=== PATIENT | male | born 1995 | race Caucasian/White ===

== ENCOUNTER 2018-04-27 05:56 | Emergency (ER) | payer SELFPAY ==
[2018-04-27 05:59] VITALS: BP 156/92; PULSE 67; RESP 18; TEMP 36.5; O2SAT 97
--- NOTE | 2018-04-27 06:03 | W.ED.GENAD ---
Discharge Plan Discharge Details Chief Complaint: GenMedical Clinical Impression: Gout attack Primary Care Provider: NONE,NONE ED Provider: Darinel Snell Disposition Patient Disposition: HOME Condition: Good Home Meds and New Rx's Prescriptions: New colchicine 0.6 mg capsule 0.6 mg PO ONCE Qty: 1 RF: 0 Discharge Instructions Instructions: Gout (ED) Additional Instructions: Take the next dose at 7:30 am today. Keep foot elevated today. Use Tylenol or Motrin for pain. Will have Care Management work with you to get primary care for follow up. Stand Alone Forms: Work Release Referrals: Care Management [Provider Group] Medical Decision Making MDM Narrative Medical decision making narrative: Patient here with big toe pain in the MTP joint with tenderness and pain with ROM. No erythema or swelling at this point. History of gout and likely recurrence today. No trauma and was fine when he went to bed. No imaging. Treat with colchicine 1.2 mg then 0.6 mg an hour later. Home for the day and use Tylenol/Motrin for pain. Return to ED if worse. Place on care management list for assistance in getting PCP for follow up. HPI - General Adult General Mode of arrival: ambulatory. Date/Time Provider Initiated Documentation: 04/27/18 06:02. Limitations to Documentation: no limitations. Information obtained by: patient. HPI Narrative-FOR DICTATION ONLY HPI Narrative: Patient presents to ED with complaint of left big toe pain. He has history of gout previously. He denies any trauma. He was drinking alcohol this weekend. He woke with pain about 2 in the morning. Pain has got worse and he is having trouble walking. He denies fever. He denies other joint pain. Related Data Previous Rx's Medication Instructions Recorded colchicine 0.6 mg PO ONCE #1 cap 04/27/18 Allergies Allergy/AdvReac Type Severity Reaction Status Date / Time No Known Allergies Allergy Unverified 10/16/17 14:07 General Stated Complaint: GenMedical AUGUSTO: 4 Review of Systems Constitutional Denies chills and Denies fever(s) Musculoskeletal Reports arthralgias, Denies joint swelling and Reports limited range of motion Integumentary/Breasts Denies erythema and Denies rash PFSH Medical History Gout (Acute) Social History Smoking/Tobacco Use Status: Never Exam Const General: cooperative, comfortable and no acute distress Orientation: alert and oriented x3 HENUT Head: normocephalic and atraumatic Skin General skin exam: no erythema Rashes: no rashes Neuro General: alert, oriented x3, moves all extremities, no focal motor deficits and CN's II-XI intact bilaterally Extrem General: normal exam except as noted Left lower extremity: no joint enlargement and foot Details: tenderness Location: of the great toe Location: at the MTP joint and abnormal ROM of toe Details: pain with active ROM Location: of the great toe Course Vital Signs Temperature 97.7 F 04/27/18 05:59 Pulse 67 04/27/18 05:59 Respiratory Rate 18 04/27/18 05:59 Blood Pressure 156/92 H 04/27/18 05:59 Pulse Oximetry 97 04/27/18 05:59 Temperature 97.7 F 04/27/18 05:59 Pulse 67 04/27/18 05:59 Respiratory Rate 18 04/27/18 05:59 Blood Pressure 156/92 H 04/27/18 05:59 Pulse Oximetry 97 04/27/18 05:59
--- NOTE | 2018-04-27 06:14 | ED.GENADUL_ITS ---
Discharge Plan Discharge Details Chief Complaint: GenMedical Clinical Impression: Gout attack Primary Care Provider: NONE,NONE ED Provider: Darinel Snell Disposition Patient Disposition: HOME Condition: Good Home Meds and New Rx's Prescriptions: New colchicine 0.6 mg capsule 0.6 mg PO ONCE Qty: 1 RF: 0 Discharge Instructions Instructions: Gout (ED) Additional Instructions: Take the next dose at 7:30 am today. Keep foot elevated today. Use Tylenol or Motrin for pain. Will have Care Management work with you to get primary care for follow up. Stand Alone Forms: Work Release Referrals: Care Management [Provider Group] Medical Decision Making MDM Narrative Medical decision making narrative: Patient here with big toe pain in the MTP joint with tenderness and pain with ROM. No erythema or swelling at this point. History of gout and likely recurrence today. No trauma and was fine when he went to bed. No imaging. Treat with colchicine 1.2 mg then 0.6 mg an hour later. Home for the day and use Tylenol/Motrin for pain. Return to ED if worse. Place on care management list for assistance in getting PCP for follow up. HPI - General Adult General Mode of arrival: ambulatory . Date/Time Provider Initiated Documentation: 04/27/18 06:02 . Limitations to Documentation: no limitations . Information obtained by: patient . HPI Narrative-FOR DICTATION ONLY HPI Narrative: Patient presents to ED with complaint of left big toe pain. He has history of gout previously. He denies any trauma. He was drinking alcohol this weekend. He woke with pain about 2 in the morning. Pain has got worse and he is having trouble walking. He denies fever. He denies other joint pain. Related Data Previous Rx's Medication Instructions Recorded colchicine 0.6 mg PO ONCE #1 cap 04/27/18 Allergies Allergy/AdvReac Type Severity Reaction Status Date / Time No Known Allergies Allergy Unverified 10/16/17 14:07 General Stated Complaint: GenMedical AUGUSTO: 4 Review of Systems Constitutional Denies chills and Denies fever(s) Musculoskeletal Reports arthralgias, Denies joint swelling and Reports limited range of motion Integumentary/Breasts Denies erythema and Denies rash PFSH Medical History Gout (Acute) Social History Smoking/Tobacco Use Status: Never Exam Const General: cooperative, comfortable and no acute distress Orientation: alert and oriented x3 HENIA Head: normocephalic and atraumatic Skin General skin exam: no erythema Rashes: no rashes Neuro General: alert, oriented x3, moves all extremities, no focal motor deficits and CN's II-XI intact bilaterally Extrem General: normal exam except as noted Left lower extremity: no joint enlargement and foot Details: tenderness Location : of the great toe Location: at the MTP joint and abnormal ROM of toe Details: pain with active ROM Location: of the great toe Course Vital Signs Temperature 97.7 F 04/27/18 05:59 Pulse 67 04/27/18 05:59 Respiratory Rate 18 04/27/18 05:59 Blood Pressure 156/92 H 04/27/18 05:59 Pulse Oximetry 97 04/27/18 05:59 Temperature 97.7 F 04/27/18 05:59 Pulse 67 04/27/18 05:59 Respiratory Rate 18 04/27/18 05:59 Blood Pressure 156/92 H 04/27/18 05:59 Pulse Oximetry 97 04/27/18 05:59
[2018-04-27] MEDS: Colchicine 0.6 MG TAB 1.2 MG PO (06:18)
[2018-04-27] MEDS: Colchicine 0.6 MG TAB PO (06:19)
--- NOTE | 2018-04-27 09:17 | PDOC.ERCMPRO ---
Care Management Progress Note 04/27-Dr. Snell requested assistance with Malik having a PCP. Malik is scheduled for an annual visit with Dr. Koo at in September. Called and spoke with Florencia. Florencia stated that Malik was their patient. Florencia stated we could add Dr. Koo to the chart for which I called Araceli in access and she will update.
== END 2018-04-27 06:45 | disposition home or self-care (01) ==
LOC: ER 06:40
PROVIDERS: Emergency Provider Emergency Medicine; PCP Family Medicine
DX: M10.9 Gout, unspecified (principal)
CPT/HCPCS: 99283

== ENCOUNTER 2019-03-26 19:44 | Emergency (ER) | payer MEDICAID, SELFPAY ==
[2019-03-26 19:52] VITALS: BP 142/94; PULSE 104; RESP 18; TEMP 36.6; O2SAT 98
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
== END 2019-03-26 20:41 | disposition home or self-care (01) ==
PROVIDERS: Emergency Provider Emergency Medicine; PCP Family Medicine
DX: S91.311A Laceration without foreign body, right foot, initial encounter (principal); V86.55XA Driver of 3- or 4- wheeled all-terrain vehicle (ATV) injured in nontraffic accident, initial encounter
CPT/HCPCS: 12001

== ENCOUNTER 2020-02-08 13:06 | Outpatient (CLI) | payer MEDICAID, SELFPAY ==
--- NOTE | 2020-02-08 13:00 | DI.RAD_ITS ---
EXAM: XR FOOT LT COMPLETE CLINICAL HISTORY: left foot pain,[id number]. TECHNIQUE: 2D digital imaging was performed. COMPARISON: No exams were available for comparison FINDINGS: BONES: No acute fracture is present. No bony destructive lesion is seen. JOINTS: No dislocation present. Mild degenerative changes at the talonavicular joint. SOFT TISSUE: Normal. IMPRESSION: Mild degenerative changes. DATA REPOSITORY: RADIATION DOSE DELIVERED:
== END 2020-02-08 13:26 ==
PROVIDERS: PCP Family Medicine; Visit Provider Nurse Practitioner Family
DX: M79.672 Pain in left foot (principal); M19.072 Primary osteoarthritis, left ankle and foot
CPT/HCPCS: 73630

== ENCOUNTER 2020-05-22 21:48 | Outpatient (REF) | payer MEDICAID, SELFPAY ==
[2020-05-22 20:47] LABS: ALT 46 U/L (16-63); AST 19 U/L (15-37); Albumin 4.6 g/dL (3.4-5.0); Alkaline Phosphatase 77 U/L (46-116); Anion Gap 10.7 mmol/L (3-11); BUN 11 mg/dL (7-18); Bilirubin, Total 0.5 mg/dL (0.2-1.0); CO2 26.3 mmol/L (21.0-32.0); CREATININE 0.99 mg/dL (0.70-1.30); Calcium 9.5 mg/dL (8.5-10.1); Chloride 103 mmol/L (98-107); Glucose 102 mg/dL (74-106); Potassium 4.3 mmol/L (3.5-5.1); Sodium 140 mmol/L (136-145); Total Protein 7.9 g/dL (6.4-8.2); Uric Acid 8.4 mg/dL (3.5-7.2)
== END 2020-05-22 22:08 ==
LOC: LBN 21:48
PROVIDERS: PCP Family Medicine; Visit Provider Nurse Practitioner Family
DX: M10.9 Gout, unspecified (principal); M79.672 Pain in left foot
CPT/HCPCS: 80053; 84550

== ENCOUNTER 2020-12-24 10:16 | Emergency (ER) | payer MEDICAID, SELFPAY ==
[2020-12-24 10:23] VITALS: BP 163/78; PULSE 98; RESP 16; TEMP 36.9; O2SAT 97
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
[2020-12-25 11:15] LABS: COVID-19 RT-PCR UVMMC Result Negative (Negative)
== END 2020-12-24 11:55 | disposition home or self-care (01) ==
PROVIDERS: Emergency Provider Physician Assistant; PCP Family Medicine
DX: S42.021A Displaced fracture of shaft of right clavicle, initial encounter for closed fracture (principal); R07.82 Intercostal pain; V86.55XA Driver of 3- or 4- wheeled all-terrain vehicle (ATV) injured in nontraffic accident, initial encounter; Z03.818 Encounter for observation for suspected exposure to other biological agents ruled out
CPT/HCPCS: 99284; U0003; 71046; 71100; 73010

== ENCOUNTER 2020-12-25 08:17 | Outpatient (CLI) | payer MEDICAID, SELFPAY ==
--- NOTE | 2020-12-25 08:00 | DI.RAD_ITS ---
Exam(s) XR CLAVICLE RT EXAM: XR CLAVICLE RT CLINICAL HISTORY: f/u TECHNIQUE: 2D digital imaging was performed. COMPARISON: CR XR SCAPULA RT from 12/24/2020 FINDINGS: BONES: There has been no change in the displaced fracture of the midshaft of the right clavicle. No new fracture or dislocation. No bony destructive lesion is seen. JOINTS: No dislocation present. SOFT TISSUE: Normal IMPRESSION: Stable displaced right clavicular fracture. DATA REPOSITORY: RADIATION DOSE DELIVERED:
== END 2020-12-25 08:18 | disposition home or self-care (01) ==
LOC: DIORS 08:18
PROVIDERS: PCP Family Medicine; Referring Provider Family Medicine; Visit Provider Student in an Organized Health Care Education/Training Program
DX: S42.021D Displaced fracture of shaft of right clavicle, subsequent encounter for fracture with routine healing (principal)
CPT/HCPCS: 73000

== ENCOUNTER 2020-12-27 09:26 | Day surgery (SDC) | payer MEDICAID, SELFPAY ==
[2020-12-27] VITALS (12 sets, daily range): BP systolic 110–174; BP diastolic 49–94; PULSE 74–118; RESP 15–36; TEMP 36.5–36.9; TEMPC 36.8; O2SAT 90–96; BMI 39.9
[2020-12-27] MEDS: Lactated Ringers 1,000 ML 100 ML IV ×2 (09:57→16:17)
--- NOTE | 2020-12-27 10:17 | W.ANESPRE ---
General Info Date of Service Date Performed: 12/27/20 Height: 5 ft 10 in Weight: 126.2 kg Body Mass Index (BMI): 39.9 Surgical Procedure: Operation Date: 12/27/20 11:10 Proposed Procedures Side Surgeon p Shoulder ORIF Clavicle Right Lawrence Menezes MD Meds Allergies and Home Medications Allergies Allergy/AdvReac Type Severity Reaction Status Date / Time No Known Allergies Allergy Unverified 12/27/20 09:32 Home Medication Medication Instructions Recorded colchicine 0.6 mg capsule 0.6 mg PO DAILY #3 cap 05/22/20 acetaminophen 1,000 mg PO Q6H PRN 12/25/20 oxycodone 5 mg tablet 5 - 10 mg PO Q4H PRN #22 tab MDD 12/25/20 60mg aspirin 81 mg PO DAILY 14 Days #14 tab 12/27/20 naproxen 250 - 500 mg PO BID PRN #60 tab 12/27/20 Current Visit Medications: Current Medications Generic Name Dose Route Start Last Admin Trade Name Freq PRN Reason Stop Dose Admin Ringer's Solution 1,000 mls @ 100 mls/hr 12/27/20 06:00 12/27/20 09:57 IV 01/25/21 23:59 100 mls/hr INFUSION JESSI Administration Cefazolin Sodium 3,000 mg/ 100 mls @ 200 mls/hr 12/27/20 06:00 Sodium Chloride IVPB 12/27/20 23:59 PREOP JESSI IV Miscellaneous Supplies 1 each 12/27/20 06:00 Iv Access IV 01/25/21 23:59 DIRECTED JESSI Oxycodone HCl 5 - 10 mg 12/27/20 07:27 Oxycodone 5 Mg Tab PO Q4H PRN PRN Sodium Chloride 0 ml 12/27/20 06:00 Normal Saline Flush 10 Ml Syr IV 01/25/21 23:59 PRN PRN Sodium Chloride 0 ml 12/27/20 06:00 Normal Saline 10 Ml Vial IJ 01/25/21 23:59 DIRECTED PRN Sterile Water 0 ml 12/27/20 06:00 Water,Injection,Sterile 10 Ml Vial IJ 01/25/21 23:59 DIRECTED PRN PFSH Active Problems Active Problems: Problem Status Onset Code Clavicle fracture 12/21/20 S42.009A Left foot pain M79.672 Acute gouty arthritis 02/23/18 M10.9 Hyperuricemia 10/16/17 E79.0 Provoked seizure 10/22/17 R56.9 Medical History Medical History Gout Left foot pain Tobacco Smoking/Tobacco Use Status: Current-Occasional Tobacco Type: cigarettes Quit Status: not considering quitting Second hand exposure: No Alcohol Alcohol Intake: current Alcohol intake frequency: a few times a week Alcohol type: hard liquor Substance Use Substance use: Occasionally Substance use type: marijuana Vital Signs and Lab Results Vital Signs Most Recent Vital Signs in EMR: Most Recent Vital Signs Temp Pulse Resp BP Pulse Ox 36.6 C 74 16 129/86 96 12/27/20 09:36 12/27/20 09:36 12/27/20 09:36 12/27/20 09:36 12/27/20 09:36 Lab Results Blood Type / Crossmatch: No Data to Display Complete Blood Count: White Blood Count 9.20 k/cumm (4.4-10.8) 10/13/17 02:37 10/13/17 Red Blood Count 5.00 m/cumm (4.50-6.00) 10/13/17 02:37 10/13/17 Hemoglobin 15.1 g/dL (13.5-17.5) 10/13/17 02:37 10/13/17 Hematocrit 44.0 % (40.0-50.0) 10/13/17 02:37 10/13/17 Platelet Count 281 x1000/uL (130-400) 10/13/17 02:37 10/13/17 Complete Metabolic Panel: Sodium Level 140 mmol/L (136-145) 05/22/20 11:30 05/22/20 Potassium Level 4.3 mmol/L (3.5-5.1) 05/22/20 11:30 05/22/20 Chloride Level 103 mmol/L (98-107) 05/22/20 11:30 05/22/20 Carbon Dioxide Level 26.3 mmol/L (21.0-32.0) 05/22/20 11:30 05/22/20 Blood Urea Nitrogen 11 mg/dL (7-18) 05/22/20 11:30 09/29/20 Creatinine 0.99 mg/dL (0.70-1.30) 05/22/20 11:30 05/22/20 Magnesium Level 1.9 mg/dL (1.8-2.4) 10/13/17 02:37 10/13/17 Calcium Level 9.5 mg/dL (8.5-10.1) 05/22/20 11:30 05/22/20 Albumin 4.6 g/dL (3.4-5.0) 05/22/20 11:30 05/22/20 Glucose Level 102 mg/dL (74-106) 05/22/20 11:30 05/22/20 Liver Function Panel: Alanine Aminotransferase (ALT/SGPT) 46 U/L (16-63) 05/22/20 11:30 05/22/20 Aspartate Amino Transf (AST/SGOT) 19 U/L (15-37) 05/22/20 11:30 05/22/20 Coagulation Panel: D-Dimer 197 ng/mlFEU (<500) 09/27/17 12:35 09/27/17 Cardiac Panel: No Data to Display Arterial Blood Gas: No Data to Display Venous Blood Gas: No Data to Display Pancreas Panel: No Data to Display Thyroid Panel: Thyroid Stimulating Hormone (TSH) 2.83 uIU/mL (0.358-3.74) 10/13/17 02:37 10/13/17 Infectious Disease: Coronavirus (COVID-19)(PCR) Negative (Negative) 12/24/20 11:55 12/24/20 Blood Cultures: No Data to Display Toxicology Panel: Ethyl Alcohol Level < 3.0 mg/dL (<3) 10/13/17 02:37 10/13/17 Urine Amphetamines Screen Positive (Negative) 10/13/17 04:10 10/13/17 Urine Benzodiazepines Screen Negative (Negative) 10/13/17 04:10 10/13/17 Urine Barbiturates Screen Negative (Negative) 10/13/17 04:10 10/13/17 Urine Cocaine Screen Positive (Negative) 10/13/17 04:10 10/13/17 Urine Methadone Screen Negative (Negative) 10/13/17 04:10 10/13/17 Urine Opiates Screen Negative (Negative) 10/13/17 04:10 10/13/17 Ur Tricyclic Antidepressants Screen Negative (Negative) 10/13/17 04:10 10/13/17 Ur Tetrahydrocannabinol (THC) Scrn Positive (Negative) 10/13/17 04:10 10/13/17 Anesthesia Assessment and Plan Anesthesia History Personal History: No History of General Anesthesia Family History: No Family History of Anesthesia Complications Exercise Tolerance Exercise Tolerance: Metabolic Equivalents>4 Pertinent Negatives Pertinent Negatives: No Symptoms of GERD, No Major Cardiovascular Symptoms or Complaints, No Major Pulmonary Symptoms or Complaints and No History of CVA/TIA Cardiac & Pulmonary Exam Cardiac Exam: Normal S1/S2 Heart Sounds Pulmonary Exam: Clear Bilateral Breath Sounds Airway Exam Known Difficult Airway: No Mallampati Class: 1 Mouth Opening: Normal (> 3cm) Thyromental Distance: Greater than 3 cm Neck Range of Motion: Full ROM Neck Circumference: Thick Teeth Condition: Loose or Chipped Tooth Numberin. Chipped/broken 2. Chipped/broken ASA Classification ASA Score: ASA 3 Emergency Case?: No NPO Status NPO Status: NPO Clears >2 hours, Solids >8 hours Anesthesia Plan Anesthesia Technique: General Anesthesia Airway Planned: Endotracheal Tube Pain Management: Surgeon and patient request nerve block Monitors Used: Standard Monitors
--- NOTE | 2020-12-27 11:00 | DI.RAD_ITS ---
Exam(s) XR CLAVICLE RT EXAM: XR CLAVICLE RT XR CLAVICLE RT C-arm fluoroscopy was utilized CLINICAL HISTORY: ORIF right clavicle in OR 1 TECHNIQUE: 2D and realtime digital imaging was performed. COMPARISON: CR XR CLAVICLE RT from 12/25/2020 FINDINGS: C-arm fluoroscopy was utilized by Dr. Menezes during open reduction and internal fixation fracture of t he right clavicle. Hard copy show plate and screw fixation transfixing the fracture fragments. IMPRESSION: RADIATION DOSE DELIVERED: diana Cooley= 2.9 mGy
--- NOTE | 2020-12-27 11:26 | W.ANESNERVE ---
Nerve Block Single Injection Procedure Date and Time Date Performed: 12/27/20 Procedure Start: 11:17 Location Where Procedure Performed Procedure Location: PACU Reason Performed: Postoperative Analgesia Requesting Provider: Lawrence Menezes Timeout Performed Timeout Performed: Yes Monitoring Used ECG, Blood Pressure and SpO2 Sterility Sterility: Hand Hygiene, Surgical Cap, Surgical Mask, Sterile Gloves and Chlorhexidine Sedation Given During Procedure Sedation Given (Indicate Dose Given): No Sedation given, Versed IV (2 mg) and Ketamine IV (50 mg) Patient Mental Status Patient Mental Status: Sedate with meaningful communication Nerve Block 1st Nerve Block: Laterality: Right Block Type: Interscalene Needle / Catheter Used: 100mm SonoPlex II Local Anesthetic Bolus (Indicate Dose Given): Lidocaine used for local infiltration of skin, Injected in 3-5ml increments after negative blood aspiration, Bupivacaine 0.5% (10) and Exparel (7 ml) Additives (Indicate Dose Given): None Ultrasound: Sterile probe cover and gel used Ultrasound Image Saved?: Yes Nerve Stimulator: Not Used Paresthesia: None Procedure Tolerated: No Complications and Patient tolerated well Procedure Outcome: Successful Performed By: Pato Ellis 2nd Nerve Block: Laterality: Right Block Type: Superficial Cervical Plexus Needle / Catheter Used: 100mm SonoPlex II Local Anesthetic Bolus (Indicate Dose Given): Lidocaine used for local infiltration of skin, Injected in 3-5ml increments after negative blood aspiration, Bupivacaine 0.5% (5 cc) and Exparel (3 cc) Additives (Indicate Dose Given): None Ultrasound: Sterile probe cover and gel used Ultrasound Image Saved?: Yes Nerve Stimulator: Not Used Paresthesia: None Procedure Tolerated: No Complications and Patient tolerated well Procedure Outcome: Successful Performed By: Pato Ellis
[2020-12-27] MEDS: ceFAZolin 3,000 MG in Normal Saline 100 ML 200 MG IVPB (11:47)
--- NOTE | 2020-12-27 14:35 | PDOC.DSDIS_ITS ---
Discharge Plan Disposition Patient Disposition: HOME Condition: Stable Discharge Details Reason For Visit: Right clavicle surgery Attending Provider: Lawrence Menezes Primary Care Provider: Tomas Regalado Home Meds and New Rx's Prescriptions: New naproxen 250 mg tablet 250 - 500 mg PO BID PRN (Reason: Moderate pain or swelling) Qty: 60 RF: 0 aspirin 81 mg tablet,delayed release (DR/EC) 81 mg PO DAILY 14 Days Qty: 14 RF: 0 tramadol 50 mg Tablet 50 mg PO Q8H PRN PRN (Reason: severe pain) Qty: 12 RF: 0 Continued colchicine 0.6 mg capsule 0.6 mg PO DAILY Qty: 3 RF: 0 oxycodone 5 mg tablet 5 - 10 mg PO Q4H MDD 60mg PRN (Reason: pain, severe) Qty: 22 RF: 0 acetaminophen 500 mg Tablet 1,000 mg PO Q6H PRNRF: 0 Discontinued oxycodone 5 mg capsule 5 mg PO Q8H PRNQty: 7 RF: 0 Discharge Instructions Additional Instructions: Surgery: Right clavicle open reduction internal fixation Activity: Non-weightbearing right upper extremity. Recommend sling when out of the home for 6-8 weeks. At home it is best to remove the sling and rest elbow and forearm on pillows. Please perform daily gentle range of motion about the shoulder, elbow, wrist, and hand. A physical therapy prescription will be provided separately in the office at follow-up if needed. You may use the right hand for all essential, light activities of daily living. Prescriptions: Aspirin 81 mg take 1 daily to prevent a blood clot for 2 weeks Naproxen 250 mg take 1-2 every 12 hours with a meal as needed for moderate pain Oxycodone 5 mg take 1-2 every 4-6 hours or Tramadol 50 mg take 1 every 8 hours as needed for severe pain You may use [id number] Tylenol (acetaminophen) as needed for mild pain. These pain medications may be taken all at once or in different combinations as needed. Also, recommend Colace (docusate) as a stool softener as surgery and pain medicine cause constipation. Dressings: Leave splint and dressing in place until follow-up. Keep clean and dry at all times. Do not shower. Follow-up: 10-[address] Korsh Let us know right away if you develop any redness, drainage, fevers, chest pain, or trouble breathing. Do not drink alcohol or drive for at least 24 hours after anesthesia. Please call the office during business hours with any questions or concerns. Referrals: Lawrence Menezes MD [ [facility] STAFF PHYSICIAN] - Discharge Orders Discharge Orders: Discharge Order (Routine); Ordered 12/27/20 Ordered By: Lawrence Menezes DS: Diagnosis Discharge Diagnosis (1) Clavicle fracture: Status: Acute
--- NOTE | 2020-12-27 15:01 | W.PM.OP ---
Date of service: 12/27/20 Time of Service: 13:00 Operative Note Operative Note DATE OF PROCEDURE: 12/27/20 PRE-OP DIAGNOSIS: Right displaced midshaft clavicle fracture POST-OP DIAGNOSIS: same PROCEDURE: Right clavicle ORIF, CPT #36254 SURGEON: Lawrence Menezes FINANCIAL RISK MANAGER: Jenny Oliver ANESTHESIA TYPE: Local By Surgeon, General LMA/ETT and Primary Nerve Block Refer to Anesthesia Record ESTIMATED BLOOD LOSS: 20 COMPLICATIONS: None Patient was transported to: PACU Patient's condition: stable Implants: Synthes 7-hole anterior superior 3.5 mm LCP clavicle plate with 6x 3.5mm cortex screws. 1x 3.5mm cortex lag screw under plate. Indications: Please see complete medical record for details. Findings: Widely displaced, long oblique midshaft clavicle fracture Procedure Description: In the operating room, general anesthesia was induced. The patient was positioned supine on the operating room table. All bony prominences were well-padded. Preoperative antibiotics were administered. The right clavicle was prepped and draped in the usual sterile fashion. The correct patient, procedure, and side of the procedure were all verified prior to incision. 30 cc of 1% lidocaine containing epinephrine was infiltrated about the clavicle fracture site for pain control and platysma hemostasis. Manual and fluoroscopic techniques were used to localize the fracture and a longitudinal incision was made anteriorly extending medial and lateral fracture site. Full-thickness flaps were raised, there were no crossing supraclavicular nerves to preserve, and the fracture ends were exposed. There is significant displacement in both the anterior posterior and superior directions. Care was taken to expose the long oblique fracture margins while preserving as much soft tissue attachment as possible to optimize healing. The anterior superior aspect of the clavicle was likewise cleared of soft tissue for planned plate placement. Bone reduction forceps were used to manipulate the bone ends into anatomic position and clamped in place. C-arm used to confirm appropriate reduction. Reduction was unable to be held with these clamps while applying plate, so a K wire was placed across the fracture. This maintained reduction and various anterior and anterior superior plates were selected, but none had an appropriate fit so the K wire was moved more anteriorly out of the way. The original K wire spot was overdrilled with a 3.5 mm drill, Top-Hat inserted, and 2.5 mm drill used past 4 cortex. An appropriate length 3.5 mm lag screw was inserted. K wires and clamps were removed and excellent reduction compression across the fracture site was maintained. The 7?hole anterior superior plate at the best fit, and was contoured bent on the back table to match the patient's anatomy. The plate was centered over the fracture site with the lag screw countersunk and beneath a screw cluster. While maintaining the plate in the appropriate position, an additional lag screw was drilled just distal to the initial 1 through the plate and provisionally tightened while maintaining rotation of the plate. Cortex screw was then placed most distally and laterally in a bicortical fashion to set reduction, and the lag screw through the plate final tightened. The distal lateral screws were tightened as well. The next medial screw hole was attempted in lag fashion and filled with 16mm cortex screw. The remaining lateral screw hole was predrilled and fixed with appropriately 3.5 mm cortex screw. There is excellent reduction, fixation strength, and compression across the fracture site. AP and cephalad tilt fluoroscopy confirmed appropriate fracture reduction. Unfortunate, the second from medial screw angle had the threads in the fracture site so it was removed. The patient's head did not allow for trajectory to improve the angle enough for bicortical lag screw fixation so a shorter 14 mm screw was selected so no threads were in the fracture site. As there was only a single true bicortical medial screw in addition to the cortex screw at the medial aspect of the fracture that was somewhat bicortical posteriorly, an additional suture tape was passed over the plate and fracture construct at this medial aspect and securely tied with a knot anteriorly. Final AP and cephalad tilt fluoroscopy were obtained. Repair construct was tested found of excellent strength. All screws were confirmed to be final tightened. The wound was irrigated with copious normal saline. Deep platysma and tissue was closed [id number] using 2-0 Monocryl with a watertight seal over the plate taking care not to strangulate this vascular tissue. Superficial tissues were irrigated. 2-0 Monocryl was used in a buried fashion to close subcutaneous tissue. The skin was closed using 3-0 Monocryl in a buried subcuticular running fashion. Skin glue applied over the incision, which was covered with Mepilex bandage. The patient awoke from anesthesia without complication and was transferred to the recovery room in a stable condition.
--- NOTE | 2020-12-27 16:16 | W.ANESPOSTOP ---
Postoperative Evaluation Date, Time and Location Date Performed: 12/27/20 Time Performed: 16:16 Patient Location: Day Surgery Unit Vital Signs Most Recent Imported Vital Signs: Most Recent Vital Signs Temp Pulse Resp BP Pulse Ox 36.9 C 116 H 18 142/89 H 92 12/27/20 15:59 12/27/20 15:59 12/27/20 15:59 12/27/20 15:59 12/27/20 15:59 Most Recent Manually Entered Vital Signs: Adult Blood Pressure: 145/93 Heart Rate: 109 Respirations: 17 Oxygen Saturation (%): 95 Temperature (C): 36.8 C Pain Score (0-10 Scale): 0 Pain Score Most Recent Pain Score: Most Recent Pain Score Pain Level 0 12/27/20 15:59 Assessment Mental Status: Awake (Alert & Oriented to Patient Baseline) Airway and Respiratory Function: Patent airway with normal (patient baseline) respiratory exam Cardiovascular Function: Hemodynamically Stable Hydration Status: Adequately Hydrated Nausea & Vomiting: No Nausea or Vomiting Pain: Pt. Denies Any Pain Peripheral Nerve Block: Regional nerve block not resolved at time of post operative discharge Teaching Patient Teaching: Discussed Safe Use of Pain Medication Given Recent Anesthesia
== END 2020-12-27 17:00 | disposition home or self-care (01) ==
LOC: SUR 09:26
PROVIDERS: PCP Family Medicine; Visit Provider Student in an Organized Health Care Education/Training Program
PROC: (CPT 23515; principal; 2020-12-27 11:00)
DX: S42.021A Displaced fracture of shaft of right clavicle, initial encounter for closed fracture (principal); V89.2XXA Person injured in unspecified motor-vehicle accident, traffic, initial encounter
CPT/HCPCS: 23515; 76942; 73000; J0690; J1100; J1885; J2001; J2250; J2370; J2405; J2704; J3010; L3650

== ENCOUNTER 2021-01-08 12:13 | Outpatient (CLI) | payer MEDICAID, SELFPAY ==
--- NOTE | 2021-01-08 11:30 | DI.RAD_ITS ---
Exam(s) XR CLAVICLE RT EXAM: XR CLAVICLE RT INDICATION: f/u. COMPARISON: CR XR CLAVICLE RT from 12/25/2020 XR CLAVICLE RT from 12/27/2020 TECHNIQUE: 2D digital imaging was performed. FINDINGS: A fixation plate is again noted along the clavicle for fracture fixation. There is no change in frac ture or hardware alignment. DATA REPOSITORY: RADIATION DOSE DELIVERED:
== END 2021-01-08 12:14 | disposition home or self-care (01) ==
LOC: DIORS 12:13
PROVIDERS: PCP Family Medicine; Referring Provider Family Medicine; Visit Provider Student in an Organized Health Care Education/Training Program
DX: S42.021D Displaced fracture of shaft of right clavicle, subsequent encounter for fracture with routine healing (principal)
CPT/HCPCS: 73000

== ENCOUNTER 2021-02-12 14:13 | Outpatient (CLI) | payer MEDICAID, SELFPAY ==
--- NOTE | 2021-02-12 14:00 | DI.RAD_ITS ---
Exam(s) XR CLAVICLE RT EXAM: XR CLAVICLE RT CLINICAL HISTORY: f/u TECHNIQUE: COMPARISON: CR XR CLAVICLE RT from 01/08/2021 FINDINGS: Two views were obtained. In comparison with prior examination of January 08, there is new marked displ acement of fracture fragments at the fracture site, the plate and screw fixation remains in place in the distal fragment but is no longer in contact with the proximal fragment of the clavicle. IMPRESSION: RADIATION DOSE DELIVERED: Total DLP
== END 2021-02-12 14:14 | disposition home or self-care (01) ==
LOC: DIORS 14:13
PROVIDERS: PCP Family Medicine; Referring Provider Family Medicine; Visit Provider Student in an Organized Health Care Education/Training Program
DX: S42.021G Displaced fracture of shaft of right clavicle, subsequent encounter for fracture with delayed healing (principal)
CPT/HCPCS: 73000

== ENCOUNTER 2021-02-13 01:55 | Outpatient (CLI) | payer MEDICAID, SELFPAY ==
[2021-02-13 09:02] LABS: Source Nasal/Nares
[2021-02-13 10:13] LABS: COVID-19 PCR Negative (Negative)
== END 2021-02-13 01:56 | disposition home or self-care (01) ==
LOC: LBO 01:55
PROVIDERS: PCP Family Medicine; Visit Provider Student in an Organized Health Care Education/Training Program
DX: Z20.822 Contact with and (suspected) exposure to COVID-19 (principal); Z01.818 Encounter for other preprocedural examination
CPT/HCPCS: 87635

== ENCOUNTER 2021-02-14 06:11 | Day surgery (SDC) | payer MEDICAID, SELFPAY ==
[2021-02-14] VITALS (7 sets, daily range): BP systolic 133–150; BP diastolic 76–91; PULSE 85–107; RESP 16–95; TEMP 36.2–36.8; O2SAT 94–97; BMI 39.9
--- NOTE | 2021-02-14 06:32 | W.ANESPRE ---
General Info Date of Service Date Performed: 02/14/21 Height: 5 ft 10 in Weight: 126.2 kg Body Mass Index (BMI): 39.9 Surgical Procedure: Operation Date: 02/14/21 07:40 Proposed Procedures Side Surgeon p REVISION RT CLAVICLE OPEN REDUCTION INTERAL FIXATION Right Lawrence Menezes MD Meds Allergies and Home Medications Allergies Allergy/AdvReac Type Severity Reaction Status Date / Time No Known Allergies Allergy Unverified 02/14/21 06:29 Home Medication Medication Instructions Recorded acetaminophen 1,000 mg PO Q6H PRN 12/25/20 colchicine 0.6 mg capsule 0.6 mg PO DAILY #3 cap 02/13/21 naproxen 250 - 500 mg PO Q12H 02/13/21 naproxen 250 - 500 mg PO BID PRN #60 tab 02/14/21 oxycodone 5 - 10 mg PO Q4H PRN #16 tab 02/14/21 Current Visit Medications: Current Medications Generic Name Dose Route Start Last Admin Trade Name Freq PRN Reason Stop Dose Admin Ringer's Solution 1,000 mls @ 100 mls/hr 02/14/21 06:00 IV 03/15/21 23:59 INFUSION JESSI Cefazolin Sodium 3,000 mg/ 100 mls @ 200 mls/hr 02/14/21 06:00 Sodium Chloride IVPB 02/14/21 16:00 PREOP JESSI IV Miscellaneous Supplies 1 each 02/14/21 06:00 Iv Access IV 03/15/21 23:59 DIRECTED JESSI Sodium Chloride 0 ml 02/14/21 06:00 Normal Saline Flush 10 Ml Syr IV 03/15/21 23:59 PRN PRN Sodium Chloride 0 ml 02/14/21 06:00 Normal Saline 10 Ml Vial IJ 03/15/21 23:59 DIRECTED PRN Sterile Water 0 ml 02/14/21 06:00 Water,Injection,Sterile 10 Ml Vial IJ 03/15/21 23:59 DIRECTED PRN PFSH Active Problems Active Problems: Problem Status Onset Code Right clavicle fracture ~01/2021 S42.001A Clavicle fracture 12/21/20 S42.009A Left foot pain M79.672 Acute gouty arthritis 10/16/17 M10.9 Hyperuricemia 10/16/17 E79.0 Provoked seizure 10/22/17 R56.9 Medical History Medical History Gout Left foot pain Surgical History Surgical History Clavicle fracture (12/21/20) S/P ORIF: 12/27/2020 Tobacco Smoking/Tobacco Use Status: Former Tobacco Use Quit Status: not considering quitting Second hand exposure: No Alcohol Alcohol Intake: current Alcohol intake frequency: a few times a week Alcohol type: hard liquor Substance Use Substance use: Occasionally Substance use type: marijuana Vital Signs and Lab Results Lab Results Blood Type / Crossmatch: No Data to Display Complete Blood Count: No Data to Display Complete Metabolic Panel: No Data to Display Liver Function Panel: No Data to Display Coagulation Panel: No Data to Display Cardiac Panel: No Data to Display Arterial Blood Gas: No Data to Display Venous Blood Gas: No Data to Display Pancreas Panel: No Data to Display Thyroid Panel: No Data to Display Infectious Disease: Coronavirus (COVID-19)(PCR) Negative (Negative) 02/13/21 08:38 02/13/21 Coronavirus 2019 Source Nasal/Nares 02/13/21 08:38 02/13/21 Blood Cultures: No Data to Display Toxicology Panel: No Data to Display Anesthesia Assessment and Plan Anesthesia History Personal History: No History of General Anesthesia Family History: No Family History of Anesthesia Complications Exercise Tolerance Exercise Tolerance: Metabolic Equivalents>4 Pertinent Negatives Pertinent Negatives: No Symptoms of GERD, No Major Cardiovascular Symptoms or Complaints, No Major Pulmonary Symptoms or Complaints (+snores) and No History of CVA/TIA ([place] in childhood ) Cardiac & Pulmonary Exam Cardiac Exam: Normal S1/S2 Heart Sounds Pulmonary Exam: Clear Bilateral Breath Sounds Airway Exam Known Difficult Airway: No Mallampati Class: 1 Mouth Opening: Normal (> 3cm) Thyromental Distance: Greater than 3 cm Neck Range of Motion: Full ROM Neck Circumference: Thick Teeth Condition: Loose or Chipped ASA Classification ASA Score: ASA 3 Emergency Case?: No NPO Status NPO Status: NPO Clears >2 hours, Solids >8 hours Anesthesia Plan Resuscitation Status: Full Code Anesthesia Technique: General Anesthesia Airway Planned: Endotracheal Tube Monitors Used: Standard Monitors
[2021-02-14] MEDS: Lactated Ringers 1,000 ML 100 ML IV (07:27)
[2021-02-14] MEDS: ceFAZolin 3,000 MG in Normal Saline 100 ML 200 MG IVPB (07:58)
--- NOTE | 2021-02-14 09:24 | W.ANESNERVE ---
Nerve Block Single Injection Procedure Date and Time Date Performed: 02/14/21 Procedure Start: 07:50 Location Where Procedure Performed Procedure Location: PACU Reason Performed: Postoperative Analgesia Requesting Provider: Lawrence Menezes Timeout Performed Timeout Performed: Yes Monitoring Used ECG, Blood Pressure and SpO2 Sterility Sterility: Hand Hygiene, Surgical Cap, Surgical Mask, Sterile Gloves and Chlorhexidine Sedation Given During Procedure Sedation Given (Indicate Dose Given): Versed IV Dose:: 2 mg , Ketamine IV Dose:: 10 mg and Precedex IV Dose:: 12 mcg Patient Mental Status Patient Mental Status: Sedate with meaningful communication Nerve Block 1st Nerve Block: Laterality: Right Block Type: Superficial Cervical Plexus Needle / Catheter Used: 100mm SonoPlex II Local Anesthetic Bolus (Indicate Dose Given): Lidocaine used for local infiltration of skin, Injected in 3-5ml increments after negative blood aspiration, Bupivacaine 0.25% Dose:: 7.5 cc and Exparel Dose:: 7.5 cc Additives (Indicate Dose Given): None Ultrasound: Sterile probe cover and gel used Ultrasound Image Saved?: No Nerve Stimulator: Not Used Paresthesia: None Procedure Tolerated: No Complications and Patient tolerated well Procedure Outcome: Successful Performed By: Georgia Kennedy Supervised By: Chris Christopher
--- NOTE | 2021-02-14 10:40 | DI.RAD_ITS ---
Exam(s) XR CLAVICLE RT EXAM: XR CLAVICLE RT CLINICAL HISTORY: RIGHT CLAVICLE FRACTURE. TECHNIQUE: 2D digital imaging was performed. COMPARISON: No exams were available for comparison FINDINGS: Fluoroscopy provided during orthopedic procedure right clavicle. No images provided. Total fluoroscopy time 15 seconds. Cumulative dose 2.95mGy IMPRESSION: DATA REPOSITORY: RADIATION DOSE DELIVERED:
--- NOTE | 2021-02-14 11:29 | PDOC.DSDIS_ITS ---
Discharge Plan Disposition Patient Disposition: HOME Condition: Stable Discharge Details Reason For Visit: Right clavicle surgery Attending Provider: Lawrence Menezes Primary Care Provider: Tomas Regalado Home Meds and New Rx's Prescriptions: New naproxen 250 mg tablet 250 - 500 mg PO BID PRN (Reason: Moderate pain or swelling) Qty: 60 RF: 0 oxycodone 5 mg tablet 5 - 10 mg PO Q4H PRN (Reason: moderate to severe pain) Qty: 16 RF: 0 Continued colchicine 0.6 mg capsule 0.6 mg PO DAILY Qty: 3 RF: 0 acetaminophen 500 mg Tablet 1,000 mg PO Q6H PRNRF: 0 naproxen 250 mg tablet 250 - 500 mg PO Q12H RF: 0 Discharge Instructions Additional Instructions: Surgery: Right clavicle revisionopen reduction internal fixation with removal of hardware Activity: Non-weightbearing right upper extremity. Use sling whenever up and about or leaving home. May rest at side or on pillows while seated. May use lightly for self-care and activities of daily living. No lifting or reaching away from body or overhead. A physical therapy prescription will be provided separately in the office at follow-up if needed. Prescriptions: Naproxen 250 mg take 1-2 every 12 hours with a meal as needed for moderate pain Oxycodone 5 mg take 1-2 every 4-6 hours as needed for severe pain You may use [id number] Tylenol (acetaminophen) as needed for mild pain. These pain medications may be taken all at once or in different combinations as needed. Also, recommend Colace (docusate) as a stool softener as surgery and pain medicine cause constipation. Dressings: Leave dressing in place until follow-up. Keep clean and dry at all times. Follow-up: 10-[address] Menezes Let us know right away if you develop any redness, drainage, fevers, chest pain, or trouble breathing. Do not drink alcohol or drive for at least 24 hours after anesthesia. Please call the office during business hours with any questions or concerns. Referrals: Lawrence Menezes MD [ [facility]YSICIAN] - Discharge Orders Discharge Orders: Discharge Order (Routine); Ordered 02/14/21 Ordered By: Lawrence Menezes DS: Diagnosis Discharge Diagnosis (1) Right clavicle fracture: Status: Acute (2) Clavicle fracture: Status: Acute
--- NOTE | 2021-02-14 11:39 | W.PM.OP ---
Date of service: 02/14/21 Time of Service: 08:00 Operative Note Operative Note DATE OF PROCEDURE: 02/14/21 PRE-OP DIAGNOSIS: Right clavicle re-fracture/fixation failure POST-OP DIAGNOSIS: same Right clavicle re-fracture/fixation failure PROCEDURE: 1. Right clavicle revision ORIF, CPT #03755 2. Removal of deep hardware, CPT #86886 SURGEON: Lawrence Menezes TRANSPLANT COORDINATOR: Lorena Farley ANESTHESIA TYPE: Local By Surgeon, General LMA/ETT and Primary Nerve Block Refer to Anesthesia Record ESTIMATED BLOOD LOSS: 15 PATHOLOGY: other (Prior removed suture tape for routine culture) COMPLICATIONS: None Patient was transported to: PACU Patient's condition: stable Implants: Synthes 3.5mm 8-hole superior clavicle plate and 2.4mm 12-hole Adaption plate with appropriately sized medial lateral locking and compression screws 2.5cc PliaFX demineralized bone fiber Indications: Please see complete medical record for details. Findings: Mechanical failure. Abundant soft callus. Partially healed prior lag fragment. No signs of infection. Procedure Description: In the operating room, general anesthesia was induced. The patient was positioned supine on the operating room table. All bony prominences were well-padded. Preoperative antibiotics were administered. The right chest was prepped and draped in the usual sterile fashion. The correct patient, procedure, and side of the procedure were all verified prior to incision. 20 cc of 0.5% bupivacaine was infiltrated about the patient's prior incision and a few centimeters more medial. Sharp dissection was used to open the prior incision extending a few centimeters more medial raising full-thickness flaps down to periosteum and abundant scar tissue, which was also raised and a full-thickness flap deeply exposing the refracture and prior hardware. There was no purulence or significant fluid or necrotic tissue. Elevator was used to raise periosteum superiorly and anteriorly off the medial and lateral clavicle. Rongeur used to remove abundant soft callus. Hemostasis was achieved. Both loose screws and suture were removed. Provisional reduction was attempted with the existing plate in place, but was not satisfactory given plate bending and poor position for refixation. Hardware plate and screws removed in entirety. Superior surface of the clavicle and screw holes were roughened to optimize healing. Suture tape was sent to the lab for routine cultures. The lag screw was replaced with a Nice knot doubled suturetape prior to removal. The wound was copiously irrigated with normal saline as a precaution for possible infection. The new fracture line was provisionally reduced and held in place with threaded K wire and bone clamp. Given prior mechanical failure, decision was made to proceed with dual plating. A 2.4 mm adaption plate was bent to fit the anterior cortex and secured medially laterally with cortex screws in compression mode prior to placing additional far lateral and medial locking screws. Bone clamp and K wire remove. Reduction was excellent. Bone loss from failure and removed devitalized bone fragment was bone grafted with Plia demineralized bone fiber at the new fracture site and medial to enlarge screw holes. A superior 3.5 mm clavicle plate longer than the original plate was selected and carefully contoured to fit the superior margin of the clavicle ensuring excellent fixation far medially and maintaining current fracture reduction. This plate was applied to superior clavicle and clamped in place. A compression screw was placed medially and laterally. An additional locking screw was placed far medially and directed medially followed by a unicortical locking screw adjacent to the fracture site. Laterally cortex screw was placed avoiding orthogonal anterior screw followed by far most lateral locking screw. The final construct was inspected, there is excellent reduction and fixation strength. AP lateral and [id number] fluoroscopy confirmed appropriate reduction and hardware placement. Deep wound was copiously irrigated normal saline avoiding disrupting bone graft was secured between fracture sites and under the superior plate. 1 g vancomycin powder was placed as a precaution. Deep tissues were closed in a full-thickness watertight fashion using 2-0 Monocryl over the fracture and hardware. Subcutaneous tissue was closed in 2-0 Monocryl in a buried interrupted fashion. The skin was closed in 3-0 Monocryl in a running subcuticular fashion. The incision was covered with skin glue followed by a Mepilex bandage. The patient awoke from anesthesia without complication and was transferred to the recovery room in a stable condition.
--- NOTE | 2021-02-14 12:00 | W.ANESPOSTOP ---
Postoperative Evaluation Date, Time and Location Date Performed: 02/14/21 Time Performed: 12:00 Patient Location: PACU Vital Signs Most Recent Imported Vital Signs: Most Recent Vital Signs Temp Pulse Resp BP Pulse Ox 36.8 C 98 H 95 H 139/91 H 95 02/14/21 11:41 02/14/21 11:41 02/14/21 11:41 02/14/21 11:41 02/14/21 11:41 Pain Score Most Recent Pain Score: Most Recent Pain Score Pain Level 0 02/14/21 11:41 Assessment Mental Status: Awake (Alert & Oriented to Patient Baseline) Airway and Respiratory Function: Patent airway with normal (patient baseline) respiratory exam Cardiovascular Function: Hemodynamically Stable Hydration Status: Adequately Hydrated Nausea & Vomiting: No Nausea or Vomiting Pain: Pt. Denies Any Pain Peripheral Nerve Block: Regional nerve block not resolved at time of post operative discharge
== END 2021-02-14 13:00 | disposition home or self-care (01) ==
PROVIDERS: PCP Family Medicine; Visit Provider Student in an Organized Health Care Education/Training Program
PROC: (CPT 23515; principal; 2021-02-14 07:30)
DX: S42.021A Displaced fracture of shaft of right clavicle, initial encounter for closed fracture (principal); T84.228A Displacement of internal fixation device of other bones, initial encounter
CPT/HCPCS: 23515; 20680; 76942; 73000; 87070; 87205; J0131; J0690; J1100; J1885; J2001; J2250; J2405; J2704

== ENCOUNTER 2021-03-05 09:00 | Outpatient (CLI) | payer MEDICAID, SELFPAY ==
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
== END 2021-03-05 09:01 | disposition home or self-care (01) ==
LOC: DIORS 09:00
PROVIDERS: PCP Family Medicine; Referring Provider Family Medicine; Visit Provider Student in an Organized Health Care Education/Training Program
DX: S42.001D Fracture of unspecified part of right clavicle, subsequent encounter for fracture with routine healing (principal); X58.XXXD Exposure to other specified factors, subsequent encounter
CPT/HCPCS: 73000

== ENCOUNTER 2021-03-26 08:49 | Outpatient (CLI) | payer MEDICAID, SELFPAY ==
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
== END 2021-03-26 08:50 | disposition home or self-care (01) ==
LOC: DIORS 08:50
PROVIDERS: PCP Family Medicine; Referring Provider Family Medicine; Visit Provider Student in an Organized Health Care Education/Training Program
DX: S42.001D Fracture of unspecified part of right clavicle, subsequent encounter for fracture with routine healing (principal); X58.XXXD Exposure to other specified factors, subsequent encounter
CPT/HCPCS: 73000

== ENCOUNTER 2021-04-24 09:03 | Outpatient (CLI) | payer MEDICAID, SELFPAY ==
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
== END 2021-04-24 09:04 | disposition home or self-care (01) ==
LOC: DIORS 09:03
PROVIDERS: PCP Family Medicine; Referring Provider Family Medicine; Visit Provider Student in an Organized Health Care Education/Training Program
DX: S42.021D Displaced fracture of shaft of right clavicle, subsequent encounter for fracture with routine healing (principal)
CPT/HCPCS: 73000

== ENCOUNTER 2021-06-26 08:26 | Outpatient (CLI) | payer MEDICAID, SELFPAY ==
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
== END 2021-06-26 08:27 | disposition home or self-care (01) ==
LOC: DIORS 08:27
PROVIDERS: PCP Family Medicine; Referring Provider Family Medicine; Visit Provider Student in an Organized Health Care Education/Training Program
DX: S42.021D Displaced fracture of shaft of right clavicle, subsequent encounter for fracture with routine healing (principal)
CPT/HCPCS: 73000

== ENCOUNTER 2023-02-01 09:19 | Emergency (ER) | payer MEDICAID, SELFPAY ==
[2023-02-01 09:20] VITALS: PULSE 90; RESP 18; O2SAT 98
--- NOTE | 2023-02-01 09:25 | ED.GENADUL_ITS ---
Discharge Plan Discharge Details Chief Complaint: DentalOral Primary Care Provider: Cristina Marvin ED Provider: Provider,Temporary Home Meds and New Rx's Prescriptions: No Action colchicine 0.6 mg capsule 0.6 mg PO DAILY PRN Patient Comments: 02/14/21 Patient reports needing refill. Rx Instructions: take 2 capsules (1.2mg) by mouth then 1 hour later take 1 capsule (0.6mg) acetaminophen 500 mg Tablet 1,000 mg PO Q6H PRN HPI General Date/Time Provider Initiated Documentation: 02/01/23 09:23 . Related Data Home Medications Medication Instructions Recorded Confirmed acetaminophen 500 mg tablet 1,000 mg PO Q6H PRN 12/25/20 06/26/21 colchicine 0.6 mg capsule 0.6 mg PO DAILY PRN 03/26/21 06/26/21 Allergies Allergy/AdvReac Type Severity Reaction Status Date / Time No Known Allergies Allergy Unverified 06/26/21 08:17 General Stated Complaint: DentalOral AUGUSTO: 4 PFSH All Active Problems (Updated 03/26/21 @ 09:13 by Lawrence Menezes MD) Right clavicle fracture (Acute ~01/2021) Clavicle fracture (Acute 12/21/20) S/P ORIF: 12/27/2020 Left foot pain (Acute) Acute gouty arthritis (Acute 10/16/17) Hyperuricemia (Acute 10/16/17) Provoked seizure (Acute 10/22/17) Medical History (Updated 03/26/21 @ 09:13 by Lawrence Menezes MD) Gout Family History Mother No problems noted. Father No problems noted. Sister No problems noted. Brother No problems noted. Brother No problems noted. Maternal Grandfather No problems noted. Paternal Grandfather No problems noted. Maternal Grandmother No problems noted. Paternal Grandmother No problems noted. Social History Smoking/Tobacco Use Status: Former Tobacco Use Quit Date: 08/24/13 Quit status: not considering quitting Second Hand Exposure: No Smoking risk assessment performed?: Yes Alcohol Intake: current Alcohol Intake frequency: a few times a week Alcohol type: hard liquor Drug use: Occasionally Substance use type: marijuana Caregiver/Support person: No Household members: significant other Housing: apartment Pets and animals: Yes Pets and animals: dog(s) Sexually active: Yes Do you think of yourself as: straight/heterosexual Current gender identity: male What is your relationship status?: living with partner How often do you talk on the phone with friends or family?: once per week How often do you get together with friends or relatives?: three or more times per week How often do you attend evangelical or mandaen services?: decline to answer Do you belong to any clubs or organized social groups?: no Panel score (0-1 are the most socially isolated patients): 2 What type of physical activity do you participate in: other Duration: decline to answer Frequency: daily Do you feel safe at home: Yes Do you feel safe in your relationship?: Yes Course Vital Signs Vital signs: Vital Signs Pulse 90 02/01/23 09:20 Respiratory Rate 18 02/01/23 09:20 Pulse Oximetry 98 02/01/23 09:20 Temperature Source Oral 02/01/23 09:20 Pulse 90 02/01/23 09:20 Respiratory Rate 18 02/01/23 09:20 Blood Pressure Position Sitting 02/01/23 09:20 Pulse Oximetry 98 02/01/23 09:20 Oxygen Delivery Method Room Air 02/01/23 09:20 Oxygen Flow Rate 0 02/01/23 09:20
--- NOTE | 2023-02-01 09:28 | W.ED.GENAD ---
Discharge Plan Discharge Details Chief Complaint: DentalOral Primary Care Provider: Cristina Marvin ED Provider: Mikal Lo Home Meds and New Rx's Prescriptions: No Action colchicine 0.6 mg capsule 0.6 mg PO DAILY PRN Patient Comments: 02/14/21 Patient reports needing refill. Rx Instructions: take 2 capsules (1.2mg) by mouth then 1 hour later take 1 capsule (0.6mg) acetaminophen 500 mg Tablet 1,000 mg PO Q6H PRN Medical Decision Making Clinical presentation consistent with early tooth abscess. Patient will be placed on penicillin. Reviewed with patient. HPI General Date/Time Provider Initiated Documentation: 02/01/23 09:23. HPI Narrative: 27-year-old male presents to the emergency room with mild left facial swelling and dental pain. States it started yesterday while eating some compost. He says he has a broken tooth has been broken for quite some time now. He does not get this type of pain or swelling frequently. He does endorse a bit of chills but no fevers. No nausea no vomiting. No difficulty swallowing. Related Data Home Medications Medication Instructions Recorded Confirmed acetaminophen 500 mg tablet 1,000 mg PO Q6H PRN 12/25/20 06/26/21 colchicine 0.6 mg capsule 0.6 mg PO DAILY PRN 03/26/21 06/26/21 Allergies Allergy/AdvReac Type Severity Reaction Status Date / Time No Known Allergies Allergy Unverified 06/26/21 08:17 General Stated Complaint: DentalOral AUGUSTO: 4 Review of Systems Narrative: 10 point review of systems negative unless otherwise specified in the hpi PFSH All Active Problems (Updated 03/26/21 @ 09:13 by Lawrence Menezes MD) Right clavicle fracture (Acute ~01/2021) Clavicle fracture (Acute 12/21/20) S/P ORIF: 12/27/2020 Left foot pain (Acute) Acute gouty arthritis (Acute 10/16/17) Hyperuricemia (Acute 10/16/17) Provoked seizure (Acute 10/22/17) Medical History (Updated 03/26/21 @ 09:13 by Lawrence Menezes MD) Gout Family History Mother No problems noted. Father No problems noted. Sister No problems noted. Brother No problems noted. Brother No problems noted. Maternal Grandfather No problems noted. Paternal Grandfather No problems noted. Maternal Grandmother No problems noted. Paternal Grandmother No problems noted. Social History Smoking/Tobacco Use Status: Former Tobacco Use Quit Date: 08/24/13 Quit status: not considering quitting Second Hand Exposure: No Smoking risk assessment performed?: Yes Alcohol Intake: current Alcohol Intake frequency: a few times a week Alcohol type: hard liquor Drug use: Occasionally Substance use type: marijuana Caregiver/Support person: No Household members: significant other Housing: apartment Pets and animals: Yes Pets and animals: dog(s) Sexually active: Yes Do you think of yourself as: straight/heterosexual Current gender identity: male What is your relationship status?: living with partner How often do you talk on the phone with friends or family?: once per week How often do you get together with friends or relatives?: three or more times per week How often do you attend evangelical or nondenominational services?: decline to answer Do you belong to any clubs or organized social groups?: no Panel score (0-1 are the most socially isolated patients): 2 What type of physical activity do you participate in: other Duration: decline to answer Frequency: daily Do you feel safe at home: Yes Do you feel safe in your relationship?: Yes Exam Narrative Exam Narrative: General: A,A Ox3, Calm, no apparent distress, well developed, pleasant and cooperative Head Size/Shape: normocephalic, atraumatic Eyes Pupils: PERRLA Extraocular Mobility: intact and symmetrical Conjunctiva: non-injected, anicteric, no discharge Ears, Nose, Throat Nares: patent bilaterally Oral Cavity: moist , fractured tooth #14. No gum swelling. He does have discrete swelling of the left cheek. Through the mouth normal Neck: supple Respiratory Effort: no dyspnea Cardiovascular normal cap refill Musculoskeletal System Joints, Bones, and Muscles: no deformities Extremities: warm and well-perfused, no cyanosis, capillary refill <2 seconds Skin Skin Inspection: no rash, no lesions, no bruising Neurological Motor: normal tone, normal strength, moving all extremities equally Psychiatric: good insight, good judgement, normal mood and affect Course Vital Signs Vital signs: Vital Signs Pulse 90 02/01/23 09:20 Respiratory Rate 18 02/01/23 09:20 Pulse Oximetry 98 02/01/23 09:20 Temperature Source Oral 02/01/23 09:20 Pulse 90 02/01/23 09:20 Respiratory Rate 18 02/01/23 09:20 Respiratory Effort Normal, Non-Labored 02/01/23 09:25 Blood Pressure Position Sitting 02/01/23 09:20 Pulse Oximetry 98 02/01/23 09:20 Oxygen Delivery Method Room Air 02/01/23 09:20 Oxygen Flow Rate 0 02/01/23 09:20 Pain Level 6 02/01/23 09:26
--- NOTE | 2023-02-01 09:29 | W.EDPROG ---
Date of service: 02/01/23 Time of Service: 09:30 Medical Decision Making I had initially drafted a note on this patient but I did not see him nor participate in his care in the ED. Discharge Plan Discharge Details Chief Complaint: DentalOral Primary Care Provider: Cristina Marvin ED Provider: Mikal Lo Home Meds and New Rx's Prescriptions: No Action colchicine 0.6 mg capsule 0.6 mg PO DAILY PRN Patient Comments: 02/14/21 Patient reports needing refill. Rx Instructions: take 2 capsules (1.2mg) by mouth then 1 hour later take 1 capsule (0.6mg) acetaminophen 500 mg Tablet 1,000 mg PO Q6H PRN
[2023-02-01] MEDS: Penicillin V POTASSIUM 500 MG TAB 1000 MG PO (09:38)
== END 2023-02-01 09:43 | disposition home or self-care (01) ==
PROVIDERS: Emergency Provider Emergency Medicine; PCP Family Medicine
DX: R68.84 Jaw pain (principal)
CPT/HCPCS: 99283; 99284

== ENCOUNTER 2024-06-18 01:48 | Emergency (ER) | payer OTHER, SELFPAY ==
[2024-06-18] VITALS (56 sets, daily range): BP systolic 116–170; BP diastolic 66–135; PULSE 98–129; RESP 13–27; TEMP 36.9–37; O2SAT 2–100
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
[2024-06-18 02:24] LABS: Abs Immature Grans 0.03 10^3/uL (0.0-0.06); Absolute Basophil Count 0.02 10^3/uL (0.0-0.2); Absolute Eosinophil Count 0.17 10^3/uL (0.0-0.7); Absolute Lymphocyte Count 3.36 10^3/uL (1.2-3.4); Absolute Monocyte Count 0.33 10^3/uL (0.1-0.8); Absolute Neutrophil Count 3.13 10^3/uL (1.2-6.7); Basophils % 0.3 %; Eosinophils % 2.4 %; HCT 48.5 % (40.0-50.0); HGB 16.7 g/dL (13.5-17.5); Immature Grans % 0.4 %; Lymphocytes % 47.7 %; MCH 29.8 pg (27.0-33.0); MCHC 34.4 % (32.0-36.0); MCV 87 fL (80-95); MPV 9.1 fL (8.0-11.0); Monocytes % 4.7 %; Neutrophils % 44.5 %; Platelet Count 287 10^3/uL (130-400); RDW 12.3 % (11.8-14.1); RDW-SD 38.9 fL; WBC 7.04 10^3/uL (4.4-10.8)
[2024-06-18] MEDS: Ondansetron 4 MG/2 ML VIAL IVP ×2 (02:24→07:32)
[2024-06-18] MEDS: fentaNYL 100 MCG/2 ML VIAL 50 MCG IVP ×8 (02:24→07:32)
[2024-06-18 02:33] LABS: BE (Venous) -3 mmol/L (-2-3); HCO3 (Venous) 23 mmol/L (23-28); O2 Sat (Venous) 69 %; TCO2 (Venous) 24 mmol/L (24-29); pCO2 (Venous) 41 mmHg (41-51); pO2 (Venous) 38 mmHg
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
[2024-06-18 02:49] LABS: ALT 52 U/L (16-63); AST 22 U/L (15-37); Albumin 4.5 g/dL (3.4-5.0); Alkaline Phosphatase 99 U/L (46-116); Amylase 54 U/L (25-115); Anion Gap 12.3 mmol/L (3-11); BUN 8 mg/dL (7-18); Bilirubin, Total 0.38 mg/dL (0.2-1.0); CO2 25.7 mmol/L (21.0-32.0); Calcium 9.7 mg/dL (8.5-10.1); Chloride 106 mmol/L (98-107); Creatine Kinase 182 U/L (39-308); ETHANOL BLOOD 175.3 mg/dL (<10); Estimated GFR 105.14 (mL/min/1.73m2); Glucose 180 mg/dL (74-106); Lipase 52 U/L (16-77); Potassium 3.3 mmol/L (3.5-5.1); Sodium 144 mmol/L (136-145); Total Protein 8.8 g/dL (6.4-8.2)
[2024-06-18 03:01] LABS: Troponin I < 4 ng/L (<or=76)
[2024-06-18] MEDS: Normal Saline 1,000 ML 1000 ML IV (03:28)
[2024-06-18] MEDS: Normal Saline - Diluent 50 ML VIAL IJ (03:41)
[2024-06-18] MEDS: Omnipaque 350 MG/ML 100 ML BTL IJ (03:42)
[2024-06-18 04:01] LABS: Troponin I < 4 ng/L (<or=76)
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
[2024-06-18] MEDS: ACETAMINOPHEN 1,000 MG/100 ML BAG 400 MG IVPB (04:11)
[2024-06-18] MEDS: fentaNYL 100 MCG/2 ML VIAL IVP (04:11)
[2024-06-18] MEDS: ceFAZolin 2 GM/50 ML BAG 100 GM (04:12)
[2024-06-18] MEDS: Tetanus & Diphtheria Tox,ADULT 0.5 ML VIAL IM (04:22)
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
[2024-06-18] MEDS: Ketorolac 15 MG/ML VIAL IVP (05:48)
[2024-06-18 06:18] LABS: Bilirubin Negative (Negative); Blood Negative (Negative); Clarity Clear (Clear); Glucose Negative (Negative); Ketones Negative (Negative); Leukocyte Esterase Negative (Negative); Nitrite Negative (Negative); Urobilinogen 0.2 mg/dL (Up to 0.2); pH 5.5 (5-8)
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
== END 2024-06-18 07:53 | disposition short-term general hospital (02) ==
PROVIDERS: Emergency Provider Student in an Organized Health Care Education/Training Program
DX: S82.831A Other fracture of upper and lower end of right fibula, initial encounter for closed fracture; V03.00XA Pedestrian on foot injured in collision with car, pick-up truck or van in nontraffic accident, initial encounter; Z23 Encounter for immunization
CPT/HCPCS: 73562; 74177; 80053; 82550; 82805; 83690; 90471; 90714; 93005; 96361; 96374; 96375; 99285; 70450; 71260; 72125; 73590; 73610; 73630; 73700; 80320; 81003; 82150; 83605; 84484; 85025; 93010; J0131; J0690; J1885; J2405; J3010; J3490